=== PATIENT | female | born 1990 | race Caucasian/White ===

== ENCOUNTER 2018-02-07 07:57 | Outpatient (CLI) | END 2018-02-07 18:00 | disposition home or self-care (01) ==

== ENCOUNTER 2018-02-08 13:45 | Inpatient (IN) | END 2018-02-09 16:57 | disposition home or self-care (01) | DRG 778 ==

== ENCOUNTER 2018-03-01 11:58 | Inpatient (IN) | END 2018-03-03 14:43 | disposition home or self-care (01) | DRG 775 ==